=== PATIENT | male | born 1985 | race American Indian/Alaskan Native ===

== ENCOUNTER 2018-09-11 14:51 | Inpatient (IN) | payer OTHER ==
[2018-09-11 15:29] LABS: BASO % 0.7 % (0.0-2.0); EOS % 0.2 % (0.0-4.0); HEMOGLOBIN 16.3 g/dL (12.0-18.0); LYMPH # 0.6 K/uL (1.0-4.3); LYMPH % 9.5 % (20.0-40.0); MEAN CELL VOLUME 87.9 fL (80.0-94.0); MEAN CORPUSCULAR HEMOGLOBIN 29.7 pg (27.0-31.0); MEAN CORPUSCULAR HGB CONC 33.7 g/dL (33.0-37.0); MEAN PLATELET VOLUME 8.9 fL (7.2-11.7); MONO # 0.3 K/uL (0.0-0.8); MONO % 4.2 % (0.0-10.0); NEUT # 5.7 K/uL (1.8-7.0); NEUT % 85.4 % (50.0-75.0); NRBC % 0.1 % (0.0-2.0); PLATELET COUNT 268 K/uL (130-400); RBC 5.49 Mil/uL (4.40-5.90); RED CELL DISTRIBUTION WIDTH 13.7 % (11.5-14.5); WHITE BLOOD COUNT 6.6 K/uL (4.8-10.8)
[2018-09-11 15:38] LABS: SQUAMOUS EPITHIAL 1 /hpf (0-5); URINE BILIRUBIN NEGATIVE (NEGATIVE); URINE BLOOD NEGATIVE (NEGATIVE); URINE CLARITY Hazy (Clear); URINE COLOR Amber (YELLOW); URINE GLUCOSE (UA) NORMAL (Normal); URINE LEUKOCYTE ESTERASE NEG Leu/uL (Negative); URINE PROTEIN 2+ mg/dL (NEGATIVE); URINE UROBILINOGEN NORMAL mg/dL (0.2-1.0)
[2018-09-11 15:42] LABS: ALB/GLOB RATIO 1.3 (1.0-2.1); ALBUMIN 5.2 g/dL (3.5-5.0); ALT/SGPT 42 U/L (21-72); AST/SGOT 76 U/L (17-59); BLOOD UREA NITROGEN 16 mg/dL (9-20); CALCIUM 10.5 mg/dl (8.6-10.4); GFR NON-AFRICAN AMERICAN > 60
[2018-09-11 15:47] LABS: ANISOCYTOSIS SLIGHT; GIANT PLATELETS PRESENT; LYMPHOCYTE 11 % (20-40); MONOCYTE 6 % (0-10); NEUTROPHIL 83 % (50-75); PLATELET ESTIMATE NORMAL (NORMAL); TOTAL CELLS COUNTED 100
--- NOTE | 2018-09-11 15:48 | C.PDOC ---
History Of Present Illness 32 y/o male is brought in by his family for bizarre behavior. History obtained from family because patient refuses to speak to me. As per family, patient has been paranoid and having bizarre behavior since yesterday. Patient told family that it feels like the devil is out to get him. Family reports that he had a similar episode 4 years ago. At that time, patient had marijuana that was laced with K2. Patient was incarcerated 2 years ago and got out 2016, and has been fine since. Family thinks that he has been smoking marijuana again. They state that he is unmanageable, uncontrollable, and can sometimes either get violent or withdrawn. Patient did agree to come here to ER. Time Seen by Provider: 09/11/18 15:05 Chief Complaint (Nursing): Psychiatric Evaluation History Per: Family Onset/Duration Of Symptoms: Days Current Symptoms Are (Timing): Still Present Past Medical History Reviewed: Historical Data, Nursing Documentation, Vital Signs Vital Signs: Last Vital Signs Temp 99.2 F 09/11/18 15:32 Pulse 104 H 09/11/18 15:32 Resp 18 09/11/18 15:32 BP 185/109 H 09/11/18 15:32 Pulse Ox 98 09/11/18 15:32 Family History: States: No Known Family Hx - Social History Hx Alcohol Use: No Hx Substance Use: Yes - Immunization History Hx Tetanus Toxoid Vaccination: No Hx Influenza Vaccination: No Hx Pneumococcal Vaccination: No Review Of Systems Constitutional: Negative for: Fever, Chills Cardiovascular: Negative for: Chest Pain Respiratory: Negative for: Cough, Shortness of Breath Gastrointestinal: Negative for: Nausea, Vomiting, Abdominal Pain Psych: Positive for: Psychosis (Paranoia) Physical Exam - Physical Exam Appears: Non-toxic, No Acute Distress Skin: Warm, Dry Head: Atraumatic, Normacephalic Eye(s): bilateral: Normal Inspection Oral Mucosa: Moist Neck: Supple Cardiovascular: Rhythm Regular, No Murmur Respiratory: Normal Breath Sounds, No Rales, No Rhonchi, No Wheezing Gastrointestinal/Abdominal: Soft, No Tenderness Extremity: Bilateral: Atraumatic, Normal ROM Neurological/Psych: Other (Can't assess orientation, nonverbal) ED Course And Treatment - Laboratory Results Result Diagrams: 09/11/18 15:25 09/11/18 15:25 Lab Results: Total Bilirubin 0.8 mg/dL (0.2-1.3) 09/11/18 15:25 AST 76 U/L (17-59) H 09/11/18 15:25 ALT 42 U/L (21-72) 09/11/18 15:25 Alkaline Phosphatase 104 U/L (38-126) 09/11/18 15:25 Total Protein 9.0 g/dL (6.3-8.3) H 09/11/18 15:25 Albumin 5.2 g/dL (3.5-5.0) H 09/11/18 15:25 Globulin 3.9 gm/dL (2.2-3.9) 09/11/18 15:25 Albumin/Globulin Ratio 1.3 (1.0-2.1) 09/11/18 15:25 Urine Color Marissa (YELLOW) 09/11/18 15:30 Urine Clarity Hazy (Clear) 09/11/18 15:30 Urine pH 5.0 (5.0-8.0) 09/11/18 15:30 Ur Specific [place] 1.033 (1.003-1.030) H 09/11/18 15:30 Urine Protein 2+ mg/dL (NEGATIVE) H 09/11/18 15:30 Urine Glucose (UA) Normal mg/dL (Normal) 09/11/18 15:30 Urine Ketones 2+ mg/dL (NEGATIVE) H 09/11/18 15:30 Urine Blood Negative (NEGATIVE) 09/11/18 15:30 Urine Nitrate Negative (NEGATIVE) 09/11/18 15:30 Urine Bilirubin Negative (NEGATIVE) 09/11/18 15:30 Urine Urobilinogen Normal mg/dL (0.2-1.0) 09/11/18 15:30 Ur Leukocyte Esterase Neg Jules/uL (Negative) 09/11/18 15:30 Urine WBC (Auto) 2 /hpf (0-5) 09/11/18 15:30 Ur Squamous Epith Cells 1 /hpf (0-5) 09/11/18 15:30 Lab Interpretation: Normal (except UDS + marijuana) ECG: Interpreted By Sd ECG Rhythm: Sinus Tachycardia (with right axis) ECG Interpretation: No Acute Changes O2 Sat by Pulse Oximetry: 98 (RA) Pulse Ox Interpretation: Normal - Radiology CXR: Interpreted by Me CXR Interpretation: Yes: No Acute Disease - Other Rad CXR X-Ray: Read By Radiologist Interpretation: FINDINGS: LUNGS: No active pulmonary disease. PLEURA: No significant pleural effusion identified. No pneumothorax apparent. CARDIOVASCULAR: No aortic atherosclerotic calcification present. Normal cardiac size. No pulmonary vascular congestion. OSSEOUS STRUCTURES: No significant abnormalities. VISUALIZED UPPER ABDOMEN: Normal. OTHER FINDINGS: None. IMPRESSION: No active disease. Progress Note: Patient is medically cleared for psychiatric evaluation. 7:30 patient remains awake and alert. He has eaten a small amount of food and is sitting quietly with family at bedside. He is still refusing to speak. 11:00 Patient was seen by [facility] screener and accepted for psychiatric admission. Awaiting bed placement. Medical Decision Making Medical Decision Making: Plan: --Labs --UA Disposition - Disposition Disposition Time: 23:27 Condition: STABLE - Clinical Impression Clinical Impression: Schizophrenia, Psychotic affective disorder - Scribe Statement The provider has reviewed the documentation as recorded by the Leroyibrah Wallace Provider Attestation: All medical record entries made by the Leroyibrah were at my direction and personally dictated by me. I have reviewed the chart and agree that the record accurately reflects my personal performance of the history, physical exam, medical decision making, and the department course for this patient. I have also personally directed, reviewed, and agree with the discharge instructions and disposition. Physician Patient Turnover Patient Signed Over To: Dima Garcia DO Handoff Comments: pending bed placement
[2018-09-11 15:49] LABS: LARGE PLATELETS PRESENT
[2018-09-11 15:50] LABS: BARBITURATES, UR NEGATIVE (NEGATIVE); BENZODIAZEPINES, UR NEGATIVE (NEGATIVE); OPIATES, UR NEGATIVE (NEGATIVE); PHENCYCLIDINE, UR NEGATIVE (NEGATIVE)
--- NOTE | 2018-09-11 17:14 | RAD ---
Date of service: 09/11/2018 HISTORY: medical clearance COMPARISON: No prior. TECHNIQUE: Chest PA and lateral views FINDINGS: LUNGS: No active pulmonary disease. PLEURA: No significant pleural effusion identified. No pneumothorax apparent. CARDIOVASCULAR: No aortic atherosclerotic calcification present. Normal cardiac size. No pulmonary vascular congestion. OSSEOUS STRUCTURES: No significant abnormalities. VISUALIZED UPPER ABDOMEN: Normal. OTHER FINDINGS: None. IMPRESSION: No active disease.
[2018-09-12] MEDS ORDERED: DiphenhydrAMINE 50 mg/ml Inj IM PRN (10:08)
--- NOTE | 2018-09-12 14:51 | PCM.PSYCH ---
Initial Psychiatric Evaluation - Initial Psychiatric Evaluation Type of Admission: Voluntary Legal Status: Capacity Chief Complaint (in patient's own words): I want to leave. History of Present Illness and Precipitating Events: Patient is a 32 y/o -[place] male, who was escorted to the ED by his family because of the bizarre behavior. As per the mother, patient has been paranoid and bizarre since yesterday. Patient told family that it feels like the devil is out to get him. As noted, patient had a similar episode 4 years ago, when he smoked laced marijuana. He was admitted at the [facility] involuntarily. However he did not follow- up with any psychiatrist after discharge. As per the mother, he has been smoking marijuana again. They brought him to the ED as he was uncontrollable and violent towards the family. Patient appeared very disorganized and internally preoccupied. He was responding to internal stimuli. As per the staff, he is becoming increasingly irritable and agitated and attacking the staff in the ED. Patient was medicated and put on four-point restraint multiple times due to aggressive and agitated behavior towards the staff. He remained paranoid, delusional and bizarre. He was put on one-to-one. He appeared to have loose associations and he remained partially mute to most of the questions. Past medical history None reported Current Medications: Active Medications Generic Name Dose Route Start Last Admin Trade Name Freq PRN Reason Stop Dose Admin Benztropine Mesylate 2 mg 09/12/18 10:07 Cogentin PO Q6 PRN Extra Pyramidal Symptoms Diphenhydramine HCl 50 mg 09/12/18 10:07 Benadryl PO Q6 PRN Extra Pyramidal Symptoms Diphenhydramine HCl 50 mg 09/12/18 10:08 Benadryl IM Q8 PRN Agitation Haloperidol 5 mg 09/12/18 10:07 Haldol PO Q8 PRN Moderate Agitation Haloperidol Lactate 5 mg 09/12/18 10:07 09/12/18 10:31 Haldol IM 5 mg Q8 PRN Administration Moderate Agitation Lorazepam 2 mg 09/12/18 10:07 Ativan PO Q8H PRN Severe Agitation Lorazepam 1 mg 09/12/18 10:08 Ativan IM Q6H PRN Anxiety Past Psychiatric History - Past Psychiatric History Previous Treatment History: Inpatient Pertinent Medical Hx (Current Medical&Sleep Prob, Allergies): Allergies Allergy/AdvReac Type Severity Reaction Status Date / Time No Known Allergies Allergy Verified 09/11/18 15:12 No Known Home Med 09/11/18 Review of Systems - Review of Systems All systems: reviewed and no additional remarkable complaints except - Psychiatric Psychiatric: Auditory Hallucinations, Behavioral Changes, Hallucinations, Irritability, Paranoia Mental Status Examination - Personal Presentation Personal Presentation: Looks stated age - Affect Affect: Broad - Motor Activity Motor Activity: Psychomotor Agitation - Reliability in Providing Information Reliability in Providing Information: Poor, due to alteration in thoughts, Poor, due to altered mood - Speech Speech: Disorganized - Mood Mood: Euphoric - Formal Thought Process Formal Thought Process: Hallucinations, Delusions, Paranoia, Loosening of associations, Flight of ideas - Hallucinations/Delusions Hallucinations: Visual, Auditory Delusions: Persecution - Obsessions/Compulsions Obsessions: No Compulsions: No - Cognitive Functions Orientation: Person, Place, Situation, Time Sensorium: Alert Attention/Concentration: Attentive Abstract Thinking: [place] Estimate of Intelligence: Below average Judgement: Imparied, as evidence by: Poor judgement, Imparied, as evidence by: Lack of insight into illness - Risk Risk: Homicidal, Elopement, Diminished functioning - Strength & Assets Inventory Strength & Assets Inventory: Family support DSM 5 DX - DSM 5 DSM 5 Diagnosis: Schizoaffective disorder bipolar type Cannabis use disorder severe - Recommended/Plan of Treatment Treatment Recommendations and Plan of Treatment: Schizoaffective disorder bipolar type Cannabis use disorder severe Supportive therapy Haldol for psychosis Depakote for mood Klonopin for anxiety Patient committed involuntarily by [facility], waiting for the placement
[2018-09-12] MEDS ORDERED: Divalproex 500 mg DR Tab PO ONE (17:37)
[2018-09-12] MEDS: Divalproex 500 mg DR Tab PO SCH (17:41)
[2018-09-13] MEDS ORDERED: Divalproex 500 mg DR Tab PO ONE (09:57)
[2018-09-13] MEDS: Divalproex 500 mg DR Tab PO SCH ×3 (09:57→19:24)
[2018-09-13 15:58] VITALS: O2SAT 97
--- NOTE | 2018-09-13 17:18 | PCM.BM ---
<Vishal Hernandez - Last Filed: 09/13/18 17:15> Treatment Plan Problems - Problems identified on initial assessmt Delusions Date Initiated: 09/13/18 Time Initiated: 17:16 Assessment reference: NA Status: Active Thought process Date Initiated: 09/13/18 Time Initiated: 17:16 Status: Active Treatment assets and liabiliti Patient Assests: motivated, self-reliant, ADL independent, physically healthy, negotiates basic needs, cognitively intact Patient Liabilities: dietary restrictions (Pork), substance abuse (Cannabis), medical problems (hx of depression, temp psychosis), legal issue (hx of arrest) - Milieu Protocol Maintain good personal hygiene: daily Encourage regular showers, daily Remind patient to perform daily oral care, every shift Assist patient to perform ADL's Conduct patient checks and document Observation sheet: Q15 minutes (For safety) Maintain personal safety: every shift Educate patient to report safety concerns to staff, every shift Monitor environment for contraband/sharps Medication safety: Monitor for expected outcome, potential side effects: every shift, Assess barriers to learning: every shift, Assess readiness for medication education: every shift Milieu Narrative: Schizoaffective disorder bipolar type Cannabis use disorder severe Supportive therapy Haldol for psychosis Depakote for mood Klonopin for anxiety Patient committed involuntarily by [facility], waiting for the placement Discharge/Continuing Care - Treatment Team Participation Patient/Family/SO Statement: Schizoaffective disorder bipolar type Cannabis use disorder severe Supportive therapy Haldol for psychosis Depakote for mood Klonopin for anxiety Patient committed involuntarily by [facility], waiting for the placement <Rosana Mcgill - Last Filed: 09/15/18 11:30> - Diagnosis (1) Schizophrenia Status: Acute Interventions: 09/15/18 11:30 * Assess/adjust medications daily and /or as needed * See patient on an individual basis 7x/week to assess status of hallucinations * Discuss risks, benefits, side effects and alternatives of medications * <Maribel Esteves - Last Filed: 09/15/18 12:38> Family Contact Family involvement: Patient does not wish Family/SO involvement Family contact: Patient declines to allow family contact at present - Goals for Treatment Patient goals for treatment: "I want to go to an outpatient program." Discharge/Continuing Care - Education Needs Education Needs: Patient Medication, Patient Diagnosis/Disease Process, Patient Coping Skills, Patient Placement options, Patient Community resources - Discharge Discharge Criteria: Free of paranoid thoughts, Free of agitation, Normal sleep pattern, Ability to care for self, No longer exhibiting s/s of withdrawal, Reduction of target symptoms Discharge to:: Home, With Family - Treatment Team Participation Discussed with Family/SO: No Was Patient/Family/SO present at Treatment Team Meeting: Yes
[2018-09-13] MEDS ORDERED: DiphenhydrAMINE 50 mg/ml Inj IM PRN (18:15)
[2018-09-13] MEDS ORDERED: Divalproex 500 mg DR Tab PO SCH (18:30)
[2018-09-14 06:39] VITALS: RESP 18
[2018-09-14] MEDS: Divalproex 500 mg DR Tab PO SCH ×2 (10:11→17:35)
--- NOTE | 2018-09-14 17:54 | PCM.PYCHPN ---
Psychiatric Progress Note - Psychiatric Progress Note Patient seen today, length of contact: 15 min Patient Chief Complaint: I am feeling little better.' Problems Identified/Issues Discussed: Patient was seen and evaluated, chart reviewed this with the staff. Patient reports some improvement in the paranoia. As per staff patient appears more organized and less internally preoccupied than before. He started becoming calm, cooperative and redirectable. He reports that he was smoking marijuana with his friends, then he does not know what happened. He is able to sign voluntarily. He is taking medication but denies any side effects. He needs to stay longer for stabilization of the symptoms. Medication Change: Yes Medical Record Reviewed: Yes Mental Status Examination - Cognitive Function Orientation: Person, Place, Situation, Time Memory: Intact Attention: WNL Concentration: WNL Association: Loose Fund of Knowledge: Poor - Mood Mood: Anxious - Affect Affect: Constricted - Speech Speech: Soft - Formal Thought Process Formal Thought Process: Paranoia, Loosening of associations - Suicidal Ideation Suicidal Ideation: No - Homicidal Ideation Homicidal Ideation: No Goal/Treatment Plan - Goal/Treatment Plan Need for Continued Stay: Remain at risks for inpatient hospitalization Progress Toward Problem(s) and Goals/Treatment Plan: Schizoaffective disorder bipolar type Cannabis use disorder severe Supportive therapy Haldol for psychosis Depakote for mood Klonopin for anxiety - Smoking Cessation Smoking Cessation Initiated: No
--- NOTE | 2018-09-14 17:55 | PCM.PYCHPN ---
Psychiatric Progress Note - Psychiatric Progress Note Patient seen today, length of contact: 15 min Patient Chief Complaint: I am feeling much better.' Problems Identified/Issues Discussed: Patient was seen and evaluated, chart reviewed this with the staff. As per staff patient appears more organized than before and he remained calm, cooperative and redirectable. Patient reports improvement in the paranoia and voices. He is taking medication but denies any side effects. He needs to stay longer for stabilization of the symptoms. Supportive therapy was given Medication Change: Yes Medical Record Reviewed: Yes Mental Status Examination - Cognitive Function Orientation: Person, Place, Situation, Time Memory: Intact Attention: WNL Concentration: WNL Association: Loose Fund of Knowledge: WNL - Mood Mood: Anxious - Affect Affect: Constricted - Speech Speech: Soft - Formal Thought Process Formal Thought Process: Loosening of associations - Suicidal Ideation Suicidal Ideation: No - Homicidal Ideation Homicidal Ideation: No Goal/Treatment Plan - Goal/Treatment Plan Need for Continued Stay: Remain at risks for inpatient hospitalization Progress Toward Problem(s) and Goals/Treatment Plan: Schizoaffective disorder bipolar type Cannabis use disorder severe Supportive therapy Haldol for psychosis Depakote for mood Klonopin for anxiety
[2018-09-15 07:04] VITALS: BP 125/79; PULSE 93; TEMP 98.4
[2018-09-15] MEDS: Divalproex 500 mg DR Tab PO SCH (09:47)
[2018-09-15] MEDS ORDERED: Pneumococcal 23-Valent Vaccine IM ONE (10:00)
--- NOTE | 2018-09-15 10:29 | PCM.PYCHDC ---
Mental Status Examination - Mental Status Examination Orientation: Person, Place, Situation, Time Memory: Intact Affect: Constricted Speech: Soft Attention: WNL Concentration: WNL Association: WNL Fund of Knowledge: WNL Formal Thought Process: No Impairment Description of patient's judgement and insight: good, fair Psychotic Thoughts and Behaviors: denies any AVH Suicidal Ideation: No Current Homicidal Ideation?: No Discharge Summary - Discharge Note Reason for Hospitalization: Patient is a 32 y/o -[place] male, who was escorted to the ED by his family because of the bizarre behavior. As per the mother, patient has been paranoid and bizarre since yesterday. Patient told family that it feels like the devil is out to get him. As noted, patient had a similar episode 4 years ago, when he smoked laced marijuana. He was admitted at the [facility] involuntarily. However he did not follow- up with any psychiatrist after discharge. As per the mother, he has been smoking marijuana again. They brought him to the ED as he was uncontrollable and violent towards the family. Patient appeared very disorganized and internally preoccupied. He was responding to internal stimuli. As per the staff, he is becoming increasingly irritable and agitated and attacking the staff in the ED. Patient was medicated and put on four-point restraint multiple times due to aggressive and agitated behavior towards the staff. He remained paranoid, delusional and bizarre. He was put on one-to-one. He appeared to have loose associations and he remained partially mute to most of the questions. Consultations:: List each consultation separately and include: 1. Reason for request. 2. Findings. 3. Follow-up Summary of Hospital Course include:: 1. Description of specific treatment plan utilized for patients during their course of treatmen. 2. Summarize the time- course for resolution of acute symptoms and/or regressed behaviors. 3. Describe issues identified and worked on during hospitalization. 4. Describe medication utilized. 5. Describe medical problems identified and treated. 6. Reassessment of suicide risk Summary of Hospital Course: Patient is a 32 y/o -[place] male, who was escorted to the ED by his family because of the bizarre behavior. As per the mother, patient has been paranoid and bizarre since yesterday. Patient told family that it feels like the devil is out to get him. As noted, patient had a similar episode 4 years ago, when he smoked laced marijuana. He was admitted at the [facility] involuntarily. However he did not follow- up with any psychiatrist after discharge. As per the mother, he has been smoking marijuana again. They brought him to the ED as he was uncontrollable and violent towards the family. Patient appeared very disorganized and internally preoccupied. He was responding to internal stimuli. As per the staff, he is becoming increasingly irritable and agitated and attacking the staff in the ED. Patient was medicated and put on four-point restraint multiple times due to aggressive and agitated behavior towards the staff. He remained paranoid, delusional and bizarre. He was put on one-to-one. He appeared to have loose associations and he remained partially mute to most of the questions. Past medical history None reported - Final Diagnosis (DSM 5) Condition upon Discharge: STABLE Disposition: HOME/ ROUTINE Follow-up Treatment Plan: Schizoaffective disorder bipolar type Cannabis use disorder severe Supportive therapy Haldol for psychosis Depakote for mood Klonopin for anxiety Prescriptions/Medication Reconciliation: Benztropine [Cogentin] 1 mg PO BID #60 tab Divalproex [Depakote DR] 500 mg PO BID #60 tcp Haloperidol [Haldol] 5 mg PO BID #60 tab
== END 2018-09-15 11:03 | disposition home or self-care (01) | DRG 750 ==
LOC: C.ER 14:51 → C.9E 09-13 14:39 → C.5E 09-13 15:45
PROVIDERS: ADMIT Psychiatry & Neurology Psychiatry; ATTEND Psychiatry & Neurology Psychiatry
PROC: GZ3ZZZZ Medication Management (ICD-10-PCS; principal; 2018-09-13)
PROC: GZHZZZZ Group Psychotherapy (ICD-10-PCS; 2018-09-13)
PROC: GZ56ZZZ Individual Psychotherapy, Supportive (ICD-10-PCS; 2018-09-13)
DX: F25.0 Schizoaffective disorder, bipolar type (principal); F12.259 Cannabis dependence with psychotic disorder, unspecified; F41.9 Anxiety disorder, unspecified